=== PATIENT | male | born 1990 | race Caucasian/White ===

== ENCOUNTER 2021-06-09 16:15 | Emergency (ER) | payer OTHER ==
[~2021-06-09] VITALS: Ht 165.1 cm; Wt 72.6 kg
--- NOTE | ~2021-06-09 | EMS ---
[address] [address] EMS Patient Care Report Name: ARLEY QUEEN Room #: DEP Petra#: [id number] Admission: 06/09/21 Attend Phys: Discharge: 06/09/21 Date of : [birth year] Report #: [id number] THIS REPORT FOR: //name// Report Transmitted: 06/13/2021 14:40 EMS Care Summary [place], [place]/[facility] Incident [id number] @ 06/09/2021 15:44 Incident Location [address] [place] [id number] Patient ARLEY QUEEN Female, 30 Years 1990 Patient Address homeless Patient History None Reported, Patient Allergies No known allergies, Patient Medications None Reported, Chief Complaint psych Disposition Transported No Lights/[place] Dispatch Reason Overdose/Poisoning/Ingestion Transported To [facility] Narrative ems met [facility] on scene. [facility] stated pt is having a cit performed on him and is to be transported to [facility]. [facility] stated pt is edp and had a behavioral episode at [employer]. pt found sitting upright on sidewalk and alert. pt a&ox4 gcs 15 and did not present in apparent distress. pt has no complaints. pt is calm and cooperative with ems. pt has his hands cuffed behind his back. pt [address] [address] EMS Patient Care Report Name: ARLEY QUEEN Room #: [facility]#: [id number] Admission: 06/09/21 Attend Phys: Discharge: 06/09/21 Date of : [birth year] Report #: [id number] walked into ambulance. pt was transferred onto ems cot and was secured in a semi fowlers position without incident. pt stated he is in the area because he is running for [place]. pt was transported non emergent. 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 transport was uneventful and pt rested on ems cot. pt talked to himself during transport. pt care was transferred to appropriate staff and ems goes back in service. pts bag and helmet were left with pt. Initial Vitals @16:01P: 78,R: 20,BP: 140/92,Pain: 0/10,GCS: 15,SpO2: 95,Revised Trauma: 12, @16:07P: 70,R: 20,BP: 134/70,GCS: 15,SpO2: 98,Revised Trauma: 12, Assessments @15:54MENTAL:No Abnormalities,SKIN:No Abnormalities,HEENT:Head/Face: No Abnormalities,Eyes: No Abnormalities,Neck/Airway: No Abnormalities,LUNG SOUNDS:General: No Abnormalities,Left Upper: No Abnormalities,Right Upper: No Abnormalities,Left Lower: No Abnormalities,Right Lower: No Abnormalities,ABDOMEN:General: No Abnormalities,Left Upper: No Abnormalities,Right Upper: No Abnormalities,Left Lower: No Abnormalities,Right Lower: No Abnormalities,PELVIS//GI:No Abnormalities,EXTREMITIES:Left Arm: No Abnormalities,Right Arm: No Abnormalities,Left Leg: No Abnormalities,Right Leg: No Abnormalities,PULSE:NEURO:No Abnormalities,@16:07MENTAL:No Abnormalities,SKIN:No Abnormalities,HEENT:Head/Face: No Abnormalities,Eyes: No Abnormalities,Neck/Airway: No Abnormalities,LUNG SOUNDS:General: No Abnormalities,Left Upper: No Abnormalities,Right Upper: No Abnormalities,Left Lower: No Abnormalities,Right Lower: No Abnormalities,ABDOMEN:General: No Abnormalities,Left Upper: No Abnormalities,Right Upper: No Abnormalities,Left Lower: No Abnormalities,Right Lower: No Abnormalities,PELVIS//GI:No Abnormalities,EXTREMITIES:Left Arm: No Abnormalities,Right Arm: No Abnormalities,Left Leg: No Abnormalities,Right Leg: No Abnormalities,PULSE:NEURO:No Abnormalities, Impression Behavioral/psychiatric episode Procedures @15:54ALS AssessmentResponse: UnchangedSucceeded Timeline 15:29,Call Received 15:29,Dispatch Notified 15:44,Dispatched 15:44,En Route 15:53,On Scene 15:54,At Patient 15:54,ALS Assessment,Response: UnchangedSucceeded, 16:01,BP: 140/92 M,PULSE: 78,RR: 20 R,SPO2: 95 Ox,ETCO2: ,BG: ,PAIN: 0,GCS: 15, [address] [address] EMS Patient Care Report Name: ARLEY QUEEN Room #: [facility] Lambert#: [id number] Admission: 06/09/21 Attend Phys: Discharge: 06/09/21 Date of : [birth year] Report #: [id number] 16:03,Depart Scene 16:07,BP: 134/70 M,PULSE: 70,RR: 20 R,SPO2: 98 Ox,ETCO2: ,BG: ,PAIN: ,GCS: 15, 16:09,At Destination 16:23,Call Closed Disclaimer [email or web address] Copyright 2020 [employer] This EMS Care Summary contains data elements from the applicable legal record (which may be displayed differently). It is designed to provide pertinent information for the following purposes: continuity of care, clinical quality, and state data reporting. The complete legal record is available to ED staff and administrators of the receiving hospital in [employer] Patient Tracker. All data is provided "as is."
[~2021-06-09 16:15] MED LIST: NOHOMEMEDICATIONS
== END 2021-06-09 17:03 | disposition home or self-care (01) ==
LOC: ER 16:15
DX: R45.4 Irritability and anger (principal); Z88.0 Allergy status to penicillin